=== PATIENT | male | born 1955 | race Caucasian/White ===

== ENCOUNTER → 2019-02-08 | Outpatient (CLI) | payer MEDICARE | END | disposition home or self-care (01) | LOC: LABWHC1 08:36 | PROVIDERS: ATTEND Urology | DX: R97.20 Elevated prostate specific antigen [PSA] (principal) | CPT/HCPCS: 36415; 84153 ==

== ENCOUNTER 2019-02-13 10:40 | Day surgery (SDC) | payer MEDICARE ==
[2019-02-12 08:18] VITALS: BMI 25.0
[~2019-02-13 10:40] MED LIST: LACTATED RINGERS 1,000 ML IV SCH; LIDOCAINE 1% 20 ML VIAL (10MG/ML) FOR IV START INTRADERMA PRN
[2019-02-13 11:09] VITALS: TEMP 97.9
[2019-02-13] MEDS ORDERED: PROPOFOL 10 MG/ML 20 ML VIAL IV ONE (11:35)
--- NOTE | 2019-02-13 12:21 | P.PCN ---
Date of Procedure: 02/13/19 Description of Procedure: BRIEF HISTORY: Pleasant 63-year-old male who presents now patient setting for colonoscopy. The patient reports a remote history of colonoscopy approximately 12 years ago with no polyps reported. He denies any change in bowel habits, abdominal pain, diarrhea, constipation or blood per rectum. No family history of colon cancer. PROCEDURE PERFORMED: Colonoscopy with polypectomy. PREOPERATIVE DIAGNOSIS: Screening colonoscopy, last colonoscopy 12 years ago, average risk colon cancer screening. ESTIMATED BLOOD LOSS: Minimal. IV sedation per Anesthesia. PROCEDURE: After informed consent was obtained, the patient, was brought into the endoscopy unit. IV sedation was administered by Anesthesia under continuous monitoring. Digital rectal examination was normal. Initially the Olympus CF-190 flexible video colonoscope was then inserted in the rectum, gradually advanced into the cecum without any difficulty. Careful examination was performed as the scope was gradually being withdrawn. Ileocecal valve and the appendiceal orifice were visualized and appeared normal. Prep was excellent. Mucosa of the cecum, ascending colon, transverse colon, descending colon, sigmoid colon, and rectum appeared normal. A 5 mm polyp was noted at the hepatic flexure and removed with cold snare polypectomy. A diminutive 2 mm sessile polyp was noted in the sigmoid colon and removed with cold forcep polypectomy. Retroflexion was performed in the rectum and no lesions were seen. Mild internal hemorrhoids noted. The patient tolerated the procedure well. IMPRESSION: Normal-appearing colon from rectum to cecum. 2 polyps removed from the hepatic flexure and sigmoid, by cold snare and cold forceps respectively. Mild internal hemorrhoids. RECOMMENDATIONS: Findings of this examination were discussed with the patient. Okay for diet. Await pathology from polypectomies. Anticipate repeat colonoscopy in 5 years, pending findings of pathology.
[2019-02-13 12:42] VITALS: RESP 18
[2019-02-13 13:27] VITALS: BP 150/79; PULSE 52
== END 2019-02-13 13:27 | disposition home or self-care (01) ==
LOC: ORWHC2ENDO 10:40
PROVIDERS: ATTEND Internal Medicine
DX: Z12.11 Encounter for screening for malignant neoplasm of colon (principal); D12.3 Benign neoplasm of transverse colon; K63.5 Polyp of colon; K64.8 Other hemorrhoids; Z87.442 Personal history of urinary calculi; Z91.09 Other allergy status, other than to drugs and biological substances
CPT/HCPCS: 88305; 45380; 45385; J2704